=== PATIENT | male | born 1950 | race Caucasian/White ===

== ENCOUNTER → 2019-04-17 | Outpatient (CLI) | payer OTHER ==
[2019-04-17 09:13] VITALS: BP 126/60
== END | disposition home or self-care (01) ==
LOC: SURG 09:25
PROVIDERS: ATTEND Anesthesiology Pain Medicine
DX: M54.16 Radiculopathy, lumbar region (principal); M25.511 Pain in right shoulder; M19.90 Unspecified osteoarthritis, unspecified site
CPT/HCPCS: 99213

== ENCOUNTER → 2019-05-28 | Outpatient (CLI) | payer OTHER ==
[~2019-05-28] MED LIST: BUPIVACAINE MPF 0.25% 10 ML VIAL. ONE; IOHEXOL 300 MG/ML 50 ML VIAL. ONE; LIDOCAINE 1% PF 30 ML VIAL. ONE; methylPREDNISolone ACETATE 80 MG/ML VIAL. ONE
[2019-05-28 09:54] VITALS: BP 129/59
== END ==
LOC: SURG 08:33
PROVIDERS: ATTEND Anesthesiology Pain Medicine
DX: M25.511 Pain in right shoulder (principal); M54.16 Radiculopathy, lumbar region; Z87.39 Personal history of other diseases of the musculoskeletal system and connective tissue
CPT/HCPCS: 20610; J1040; J2001; J3490; Q9967; 20611

== ENCOUNTER → 2021-07-12 | Day surgery (SDC) | payer OTHER ==
[~2021-07-12] MED LIST changes: -IOHEXOL 300 MG/ML 50 ML VIAL. ONE; +methylPREDNISolone ACETATE 40 MG/ML VIAL. ONE; -methylPREDNISolone ACETATE 80 MG/ML VIAL. ONE
[2021-07-12 13:36] VITALS: BP 146/80
== END | disposition home or self-care (01) ==
LOC: SURG 12:53
PROVIDERS: ATTEND Anesthesiology
DX: M25.511 Pain in right shoulder (principal); M54.16 Radiculopathy, lumbar region; M19.90 Unspecified osteoarthritis, unspecified site; Z87.39 Personal history of other diseases of the musculoskeletal system and connective tissue
CPT/HCPCS: 20610; 77002; A4209; A4657; A4930; J1030; J3490